=== PATIENT | female | born 1990 | race Caucasian/White ===

== ENCOUNTER 2017-09-03 13:29 | Emergency (ER) | payer MEDICAID ==
[~2017-09-03 13:29] MED LIST: WOMETAB5
[2017-09-03 13:45] VITALS: PULSE 91
[2017-09-03 13:47] VITALS: BP 114/72; PULSE 86
[2017-09-03 13:50] VITALS: PULSE 98
[2017-09-03 13:55] VITALS: PULSE 93
--- NOTE | 2017-09-03 14:13 | PD ---
HPI Chief Complaint decr FM Date Seen: Sep 03, 2017 Time Seen: 14:09 Travel History International Travel<30 Days: No Contact w/Intl Traveler<30Days: No Known Affected Area: No History of Present Illness HPI Pt is a 26y/o G1 @ 30.0wks. She has PNC with [facility]. She presented today reporting decreased FM for the past 2 days and even less this morning. Since arrival, she has felt increased/normal movement. She states that she is well hydrated and has been drinking/eating as normal. Pt is more active than typical due to work. Weeks Gestation: 30 Para: 0 : 1 Last Menstrual Period: Sep 03, 2017 History Past Medical History Medical History: Denies Significant Hx Obstetric History Obstetric History current Past Surgical History Narrative Surgical breast augmentation R elbow surgery wisdom teeth extraction Family History Family History: Negative Social History Alcohol Use: No Tobacco Use: No Substance Abuse: No Allergies-Medications (Allergen,Severity, Reaction): Coded Allergies: No Known Allergies (Verified , 06/22/17) Home Meds Reported Medications Multiple Vitamins W/ Minerals (Womens One Daily) 27 Mg-0.4 Mg Tab 06/22/17 Review of Systems Except as stated in HPI: all other systems reviewed are Neg Physical Exam Narrative General: well developed, well nourished, no acute distress HEENT: normocephalic atraumatic, extraocular movements intact, neck supple Abdomen: soft, gravid, nontender, nondistended Extremities: full range of motion, no pedal edema, no calf tenderness Skin: normal coloration, no rashes, no suspicious skin lesions noted Neurologic: cranial nerves 2-12 grossly intact, normal muscle tone, normal gait Psychiatric: normal mood and affect, appropriate FHTs: 135, +accels, no decels, moderate variability, age appropriate [place]: ripples (not felt) Cvx: deferred Data Data Vital Signs Reviewed: Yes Orders Orders Vital Signs (Adult) .ON ADMISSION (09/03/17 14:03) ^ Labor Status (09/03/17 14:03) ^ Non Stress Test (09/03/17 14:03) Ed Discharge Order (09/03/17 14:08) MDM Plan 26y/o G1 @ 30.0wks with decr FM. -- NST reactive today -- pt reports good FM now Dispo: strict precautions reviewed; stable for d/c home Diagnosis Diagnosis: Primary Impression: 30 weeks gestation of Additional Impression: Decreased movement affecting management of in third trimester Yarelis Tanner MD Sep 03, 2017 14:13
== END 2017-09-03 14:24 | disposition home or self-care (01) ==
LOC: HOBED 13:29
DX: O36.8130 Decreased fetal movements, third trimester, not applicable or unspecified (principal); Z3A.30 30 weeks gestation of pregnancy
CPT/HCPCS: 99284

== ENCOUNTER 2017-10-16 15:07 | Inpatient (IN) | payer MEDICAID ==
[~2017-10-16] VITALS: Ht 162.6 cm; Wt 71.7 kg
[2017-10-16] VITALS (70 sets, daily range): BP systolic 104–149; BP diastolic 51–83; PULSE 63–121; RESP 18; TEMP 97.5–98.2
--- NOTE | 2017-10-16 15:29 | PD ---
HPI Chief Complaint LOF Date Seen: Oct 16, 2017 Time Seen: 15:31 Travel History International Travel<30 Days: No Contact w/Intl Traveler<30Days: No Known Affected Area: No History of Present Illness HPI Pt is a 27y/o @ 36.1wks. She has PNC with Dr. Urban. She presents today complaining of a small LOF at 1:30am and then at 7:45 had a large gush. Weeks Gestation: 36 Para: 0 : 1 History Past Medical History Medical History: Denies Significant Hx Obstetric History Obstetric History 1. current Past Surgical History Narrative Surgical breast augmentation R elbow wisdom teeth extraction Social History Alcohol Use: No Tobacco Use: No Substance Abuse: No Allergies-Medications (Allergen,Severity, Reaction): Coded Allergies: No Known Allergies (Verified , 06/22/17) Home Meds Reported Medications Multiple Vitamins W/ Minerals (Womens One Daily) 27 Mg-0.4 Mg Tab 06/22/17 Review of Systems Except as stated in HPI: all other systems reviewed are Neg Physical Exam Narrative General: well developed, well nourished, no acute distress HEENT: normocephalic atraumatic, extraocular movements intact, neck supple Abdomen: soft, gravid, nontender, nondistended Uterus: fundus term Extremities: full range of motion Skin: normal coloration, no rashes, no suspicious skin lesions noted Neurologic: cranial nerves 2-12 grossly intact, normal muscle tone, normal gait Psychiatric: normal mood and affect, appropriate FHTs: 140, +accels, no decels, moderate variability, reactive [place]: ctx q4m Cvx: /-2 Data Data Vital Signs Reviewed: Yes Orders Orders Vital Signs (Adult) .ON ADMISSION (10/16/17 15:28) ^ Labor Status (10/16/17 15:28) ^ Non Stress Test (10/16/17 15:28) Pamg-1 Test .ONCE (10/16/17 15:28) MDM Plan 27y/o G1 @ 36.1wks with PPROM. -- admit to L&D -- CLD, epidural/peterson PRN -- pitocin augmentation -- GBS ordered Dispo: Dr. Prakash ([facility] analyst) notified of pt status and plan of care. He will assume care of the pt. Courtesy orders placed. Diagnosis Diagnosis: Primary Impression: 36 weeks gestation of Additional Impression: premature rupture of membranes (PPROM) with onset of labor within 24 hours of rupture in third trimester, antepartum Yarelis Tanner MD Oct 16, 2017 15:29
[2017-10-16] MEDS ORDERED: LACTATED RINGER'S 1000 ML INJ 1,000 ML IV PRN (15:42)
[2017-10-16] MEDS ORDERED: SODIUM CHLORID 0.9% 500 ML INJ 500 ML IV PRN (15:45)
[2017-10-16] MEDS ORDERED: CITRIC ACID-SODIUM CITRATE LIQ 30 ML UDC PO SCH (15:45)
[2017-10-16] MEDS ORDERED: OXYTOCIN 30 UNITS-500ML PREMIX 500 ML IV ONE ×2 (15:45→18:00)
[2017-10-16] MEDS ORDERED: LIDOCAINE HCL 1% 50 ML VIAL I-DERMAL PRN (15:45)
[2017-10-16] MEDS ORDERED: MINERAL OIL 10 ML VIAL TOPICAL PRN ×2 (15:45→18:00)
[2017-10-16] MEDS ORDERED: OXYTOCIN 30 UNITS-500ML PREMIX 500 ML IV SCH (15:45)
[2017-10-16] MEDS ORDERED: ONDANSETRON HCL 4 MG/2 ML VIAL IV PUSH PRN (15:45)
[2017-10-16] MEDS ORDERED: LIDOCAINE HCL 1% 50 ML VIAL INFIL PRN ×2 (15:45→18:00)
[2017-10-16] MEDS ORDERED: SODIUM CHLOR 0.9% 1000 ML INJ 1,000 ML IV PRN (16:02)
[2017-10-16 16:54] LABS: BASOPHIL % 0.3 % (0.0-2.0); EOSINOPHIL % 0.2 % (0.0-4.0); HEMATOCRIT 32.4 % (35.0-46.0); HEMOGLOBIN 11.2 GM/DL (11.6-15.3); LYMPH % 15.9 % (9.0-44.0); LYMPHOCYTE # 2.1 TH/MM3 (1.0-4.8); MEAN CELL VOLUME 87.3 FL (80.0-100.0); MEAN CORPUSCULAR HGB CONC 34.4 % (32.0-36.0); MEAN PLATELET VOLUME 8.2 FL (7.0-11.0); MONOCYTE # 0.9 TH/MM3 (0-0.9); NEUT % 76.6 % (16.0-70.0); PLATELET COUNT 189 TH/MM3 (150-450); RED BLOOD COUNT 3.71 MIL/MM3 (4.00-5.30); RED CELL DISTRIBUTION WIDTH 13.8 % (11.6-17.2)
[2017-10-16 17:06] LABS: BACTERIA, URINE OCC /hpf; BILIRUBIN, URINE NEG (NEG); BLOOD, URINE NEG (NEG); GLUCOSE,URINE NEG (NEG); KETONE, URINE NEG (NEG); MUCUS URINE FEW /lpf (OCC); NITRITE,URINE NEG (NEG); SQUAMOUS EPITHELIAL CELL URINE 4 /hpf (0-5); URINE COLOR LIGHT-YELLOW (YELLW/STRAW); URINE LEUKOCYTE ESTERASE SMALL (NEG)
--- NOTE | 2017-10-16 17:57 | HHI.PR ---
Objective Vital Signs Date Time Temp Pulse Resp B/P (MAP) Pulse Ox O2 Delivery O2 Flow Rate FiO2 10/16/17 16:50 97 10/16/17 16:45 103 10/16/17 16:40 102 10/16/17 16:35 103 10/16/17 16:30 102 10/16/17 16:25 101 10/16/17 16:20 96 10/16/17 16:15 99 10/16/17 16:10 99 10/16/17 16:05 101 10/16/17 16:00 102 10/16/17 15:40 105 10/16/17 15:35 115 10/16/17 15:30 121 10/16/17 15:25 97 10/16/17 15:22 96 122/75 (91) Result Diagram: 10/16/17 1605 Assessment and Plan Assessment and Plan Long discussion with family and patient about pitocin and antibiotics since she is Also discussed vaccinations in some detail Stressed we need to start pitocin now as she has been ruptured for 10 hours. Dayana Prakash MD Oct 16, 2017 17:57
[2017-10-16] MEDS ORDERED: PENICILLIN G POTASSIUM INJ 5,000,000 UNITS in SODIUM CHLORIDE 0.9% INJ 100 ML IV ONE (18:30)
[2017-10-16] MEDS: LACTATED RINGER'S 1000 ML INJ 1,000 ML IV SCH ×2 (18:49→23:42)
[2017-10-16] MEDS: PENICILLIN G POTASSIUM INJ 2,500,000 UNITS in SODIUM CHLORIDE 0.9% INJ 100 ML IV SCH (22:30)
[2017-10-17] VITALS (51 sets, daily range): BP systolic 96–143; BP diastolic 36–100; PULSE 69–143; RESP 18–22; TEMP 96.2–97.9
[2017-10-17] MEDS: PENICILLIN G POTASSIUM INJ 2,500,000 UNITS in SODIUM CHLORIDE 0.9% INJ 100 ML IV SCH (02:00)
[2017-10-17] MEDS ORDERED: fentaNYL 2MCG-BUPIV 0.125% INJ 100 ML ONE (04:15)
--- NOTE | 2017-10-17 05:38 | PD.OB.DELI ---
Weeks gestation: 36 Gest age assessed date: Oct 16, 2017 Pt started active labor?: Yes Medical induction of labor?: No Artificial rupture of membrane: No Anesthesia: None Episiotomy: None Vaginal Delivery: Normal Presentation: Occiput anterior, Occiput posterior Nuchal Cord: x1 Delayed cord clamping (45 sec): Yes Infant: Female Delivery date: Oct 17, 2017 Delivery time: 04:40 One Minute : 8 Five Minute : 9 Weight: 4/14 Placenta: Spontaneous delivery, Intact, 3 vessel cord Laceration: Vaginal laceration, 1 deg Repair: Vicryl running Estimated blood loss: 350 Additional Information Nice delivery of baby Nucal cord not reduced as she could not hold the baby in Bilateral first degree tears of labia and second degree posterior tear of perineum Repaired with 3-0 and 4-0 vicryl with excellent results. Dayana Prakash MD Oct 17, 2017 05:38
[2017-10-17] MEDS ORDERED: BENZOCAINE 20% TOPICAL SPRAY 60 ML CAN TOPICAL PRN (05:45)
[2017-10-17] MEDS ORDERED: ZOLPIDEM TARTRATE 5 MG TAB PO PRN (05:45)
[2017-10-17] MEDS ORDERED: ONDANSETRON ODT 4 MG TAB PO PRN (05:45)
[2017-10-17] MEDS ORDERED: SODIUM CHLORIDE 0.9% FLUSH 10 ML FLUSH IV FLUSH PRN (05:45)
[2017-10-17] MEDS ORDERED: OXYTOCIN 30 UNITS-500ML PREMIX 500 ML IV ONE (05:45)
[2017-10-17] MEDS ORDERED: DOCUSATE SODIUM 50 MG/SENNA 8.6 MG TAB PO PRN (05:45)
[2017-10-17] MEDS ORDERED: ALUMINUM/MAGNESIUM/SIMETH 30 ML CUP PO PRN (05:45)
[2017-10-17] MEDS ORDERED: WITCH HAZEL 50%/GLYCERIN 12.5% 40 PAD JAR TOPICAL PRN (05:45)
[2017-10-17] MEDS ORDERED: OXYTOCIN 30 UNITS-500ML PREMIX 500 ML IV SCH (05:45)
[2017-10-17] MEDS ORDERED: DEXTROSE (INFANT/PEDS) GEL 2.5 ML/GM (40%) TUBE ONE (05:56)
[2017-10-17] MEDS: ACETAMINOPHEN 325 MG TAB PO PRN ×3 (06:15→23:19)
[2017-10-17] MEDS: IBUPROFEN 800 MG TAB PO PRN ×3 (06:16→23:19)
[2017-10-17] MEDS ORDERED: PRENTAB7 (07:05)
[2017-10-17] MEDS ORDERED: IBUP1TAB7 PO (14:32)
--- NOTE | 2017-10-17 14:34 | HHI.DCPOC ---
Discharge Care Plan Diagnosis: (1) 36 weeks gestation of (2) Vaginal delivery Report Symptoms to Your Doctor -Temperature above 100.5 degrees -Redness, of incision or excessive or foul smelling drainage -Unusual pain or calf pain -Increased vaginal bleeding -Painful or difficulty urinating -Feelings of extreme sadness or anxiety after 2 weeks Goals to Promote Your Health * To prevent worsening of your condition and complications * To maintain your health at the optimal level Directions to Meet Your Goals Take your medications as prescribed Follow your dietary instruction Follow activity as directed Ensure plenty of rest for recovery Drink fluids for hydration Keep your appointments as scheduled Take your immunizations and boosters as scheduled If your symptoms worsen call your PCP, if no PCP go to Urgent Care Center or Emergency Room Smoking is Dangerous to Your Health. Avoid second hand smoke Call the 24-hour crisis hotline for domestic abuse at Dayana Prakash MD Oct 17, 2017 14:34
[2017-10-17] MEDS: MEASLES, MUMPS, RUBELLA VACCINE 0.5 ML VIAL SQ ONE (16:00)
[2017-10-17] MEDS ORDERED: DIPHTH/TETANUS/ACEL PERTUSSIS (BOOSTER) 0.5 ML VIAL/PFS IM ONE (16:00)
[2017-10-17] MEDS: SODIUM CHLORIDE 0.9% FLUSH 10 ML FLUSH IV FLUSH SCH (19:27)
[2017-10-18] MEDS: SODIUM CHLORIDE 0.9% FLUSH 10 ML FLUSH IV FLUSH SCH (09:00)
--- NOTE | 2017-10-18 09:02 | HHI.OB ---
Subjective Post Day: 1 Remarks PPD#1, stable, Objective Vitals/I&O Vital Signs Date Time Temp Pulse Resp B/P (MAP) Pulse Ox O2 Delivery O2 Flow Rate FiO2 10/17/17 21:00 76 18 122/77 (92) 10/17/17 21:00 97.9 Objective Remarks GENERAL: Well-nourished, well-developed patient. CARDIOVASCULAR: Regular rate and rhythm without murmurs, gallops, or rubs. RESPIRATORY: Breath sounds equal bilaterally. No accessory muscle use. ABDOMEN/GI: Abdomen soft, non-tender. Fundus: Firm, non-tender at umbilicus. GENITOURINARY: Light to moderate bleeding. EXTREMITIES: No cyanosis or edema, non-tender, without signs of DVT. Medications and IVs Current Medications Medications (Trade) Dose Ordered Sig/Barbara Route Start Time Stop Time Status Last Admin (NS Flush) 2 ml BID IV FLUSH 10/17/17 09:00 (NS Flush) 2 ml UNSCH PRN IV FLUSH 10/17/17 05:45 (Tylenol) 650 mg Q4H PRN PO 10/17/17 05:45 10/17/17 23:19 (Motrin) 800 mg Q8H PRN PO 10/17/17 05:45 10/17/17 23:19 (Americaine 20% Top Spr) 1 spray Q4H PRN TOPICAL 10/17/17 05:45 10/17/17 14:50 (Tucks Pads) 1 applic QID PRN TOPICAL 10/17/17 05:45 10/17/17 14:50 (Brigid-Colace) 2 tab Q12H PRN PO 10/17/17 05:45 10/17/17 06:15 (Ambien) 5 mg HS PRN PO 10/17/17 05:45 (Mag-Al Plus Susp Liq) 15 ml Q8H PRN PO 10/17/17 05:45 (Zofran Odt) 4 mg Q6H PRN PO 10/17/17 05:45 Assessment/Plan Assessment and Plan PPD#1, del. ,plan discharge for tomorrow Discharge Planning PPD#2 Jamie Urban MD Oct 18, 2017 09:02
[2017-10-18] MEDS: ACETAMINOPHEN 325 MG TAB PO PRN (09:27)
[2017-10-18] MEDS: IBUPROFEN 800 MG TAB PO PRN ×2 (09:27→19:15)
[2017-10-18 09:40] VITALS: BP 103/73; PULSE 80; RESP 18; TEMP 98
[2017-10-18 17:40] VITALS: RESP 17
[2017-10-18 20:34] VITALS: BP 116/72; PULSE 87; RESP 18; TEMP 97.7; O2SAT 98
--- NOTE | 2017-10-19 08:32 | HHI.OB ---
Subjective Post Day: 2 Remarks doing well, min vb. Objective Vitals/I&O Vital Signs Date Time Temp Pulse Resp B/P (MAP) Pulse Ox O2 Delivery O2 Flow Rate FiO2 10/18/17 20:34 87 116/72 (87) 10/18/17 20:34 97.7 18 98 10/18/17 17:40 17 10/18/17 09:40 98.0 80 18 103/73 (83) Objective Remarks GENERAL: Well-nourished, well-developed patient. CARDIOVASCULAR: Regular rate and rhythm without murmurs, gallops, or rubs. RESPIRATORY: Breath sounds equal bilaterally. No accessory muscle use. ABDOMEN/GI: Abdomen soft, non-tender. Fundus: Firm, non-tender at umbilicus. GENITOURINARY: Light to moderate bleeding. EXTREMITIES: No cyanosis or edema, non-tender, without signs of DVT. Medications and IVs Current Medications Medications (Trade) Dose Ordered Sig/[place] Route Start Time Stop Time Status Last Admin (NS Flush) 2 ml BID IV FLUSH 10/17/17 09:00 (NS Flush) 2 ml UNSCH PRN IV FLUSH 10/17/17 05:45 (Tylenol) 650 mg Q4H PRN PO 10/17/17 05:45 10/18/17 09:27 (Motrin) 800 mg Q8H PRN PO 10/17/17 05:45 10/18/17 19:15 (Americaine 20% Top Spr) 1 spray Q4H PRN TOPICAL 10/17/17 05:45 10/17/17 14:50 (Tucks Pads) 1 applic QID PRN TOPICAL 10/17/17 05:45 10/17/17 14:50 (Brigid-Colace) 2 tab Q12H PRN PO 10/17/17 05:45 10/17/17 06:15 (Ambien) 5 mg HS PRN PO 10/17/17 05:45 (Mag-Al Plus Susp Liq) 15 ml Q8H PRN PO 10/17/17 05:45 (Zofran Odt) 4 mg Q6H PRN PO 10/17/17 05:45 Assessment/Plan Assessment and Plan PPD#2, del. ,plan discharge Discharge Planning PPD#2 Preethi Rebolledo MD Oct 19, 2017 08:32
[2017-10-19 08:40] VITALS: BP 100/67; PULSE 91; RESP 14; TEMP 99
[2017-10-19] MEDS: MEASLES, MUMPS, RUBELLA VACCINE 0.5 ML VIAL SQ ONE (13:51)
== END 2017-10-19 14:18 | disposition home or self-care (01) | DRG 775 ==
LOC: HOBED 15:07 → H2EA 15:36 → H1EA 10-17 08:11
PROVIDERS: ADMIT Obstetrics & Gynecology; ATTEND Obstetrics & Gynecology
PROC: 10E0XZZ Delivery of Products of Conception, External Approach (ICD-10-PCS; principal; 2017-10-17)
PROC: 0KQM0ZZ Repair Perineum Muscle, Open Approach (ICD-10-PCS; 2017-10-17)
DX: O42.013 Preterm premature rupture of membranes, onset of labor within 24 hours of rupture, third trimester (principal); O69.81X0 Labor and delivery complicated by cord around neck, without compression, not applicable or unspecified; Z37.0 Single live birth; Z3A.36 36 weeks gestation of pregnancy; O70.1 Second degree perineal laceration during delivery
CPT/HCPCS: 59025; 80307; 81001; 84112; 85025; 86900; 86901; 87081; 87150; 87491; 87591; 88307; 90707; 90715; J2540; J2590; J7120